=== PATIENT | male | born 1960 | race Caucasian/White ===

== ENCOUNTER 2021-03-03 11:20 | Outpatient (CLI) | payer BC, SELFPAY ==
--- NOTE | 2021-03-03 11:23 | ECG_ITS ---
Measurements Intervals Vincent Rate: 76 P: 49 IL: 173 QRS: 15 QRSD: 99 T: 41 QT: 359 QTc: 405 Interpretive Statements SINUS RHYTHM DELAYED PRECORDIAL R/S TRANSITION NONSPECIFIC T-WAVE ABNORMALITY- INFERIOR LEADS BORDERLINE ECG Electronically Signed On 03-03-2021 11:43:47 CDT by Washington Dowell D.O.
[2021-03-03 13:44] LABS: Anion Gap 7 mmol/L (8-16); Blood Urea Nitrogen 12 mg/dL (9-20); Calcium 9.5 mg/dL (8.4-10.2); Carbon Dioxide 27 mmol/L (22-30); Chloride 107 mmol/L (98-107); Estimated Glomerular Filt Rate > 60; Glucose 129 mg/dL (75-110); Potassium 3.6 mmol/L (3.4-5.0); Sodium 141 mmol/L (137-145)
== END 2021-03-03 11:21 | disposition home or self-care (01) ==
LOC: ANHSURGERY 11:23
PROVIDERS: PCP Internal Medicine; Visit Provider Urology
DX: Z01.818 Encounter for other preprocedural examination (principal); I10 Essential (primary) hypertension
CPT/HCPCS: 36415; 80048; 93005

== ENCOUNTER 2021-03-05 00:51 | Day surgery (SDC) | payer BC, SELFPAY ==
[2021-03-02 08:00] VITALS: BMI 25.9
[2021-03-05] VITALS (7 sets, daily range): BP systolic 116–152; BP diastolic 81–98; PULSE 56–76; RESP 10–18; TEMP 36.7; O2SAT 96–100
--- NOTE | ~2021-03-05 | XR_ITS ---
EXAMINATION: XR retrograde pyelogram BI DATE: 03/05/2021 11:12 INDICATION: Recurrent bladder cancer. TECHNIQUE: 114 intraoperative fluoroscopic views of the abdomen and pelvis were obtained. I was not p resent. Fluoroscopy exposure time was 21 seconds. COMPARISON: None. FINDINGS: The bilateral retrograde pyelograms are normal. There is a left hip arthroplasty. IMPRESSION: 1. Normal bilateral retrograde pyelograms. Reviewed, dictated and finalized at location A.
--- NOTE | 2021-03-05 06:40 | WPDHPUPDATE1 ---
History and Physical Update Update Date/Time: 03/05/21 06:40 History and Physical has been reviewed, including an updated exam of the patient. There are NO changes in the patient's condition. Risks, benefits, and alternatives have been discussed and questions answered. Patient agrees to proceed with procedure.
--- NOTE | 2021-03-05 10:25 | WPDANESEPPF ---
Anes - Initial Pre Proc Eval Procedure: Operation Date: 03/05/21 12:00 Proposed Procedures p Trans Urethral Resection Bladder Tumor, - Karl Hernandez MD s Cystoscopy, Bilteral Retrograde Pyelogram, - Karl Hernandez MD Date/Time: 03/05/21 10:25 Surgeon: Karl Hernandez MD Pre Op Diagnosis: recurrent bladder cancer Patient Data Age: 60 Gender: M Height: 1.78 m Weight: 82 kg Allergies Allergy/AdvReac Type Severity Reaction Status Date / Time No Known Allergies Allergy Unverified 03/05/21 10:23 Home Medications Medication Instructions Recorded Confirmed Type aspirin 81 mg tablet,delayed 81 mg PO DAILY 08/01/19 03/05/21 History release simvastatin 20 mg tablet 20 mg PO DAILY #90 tablet 05/19/20 03/05/21 Rx sildenafil 100 mg tablet See Rx Instructions .ROUTE 12/17/20 03/05/21 Rx .COMPLEX #60 tablet hydrochlorothiazide 25 mg PO DAILY 03/02/21 03/05/21 History Patient hx anesthesia problems: none Family hx anesthesia problems: none PMFSH Past Medical History Medical History HTN (hypertension) Hyperlipidemia Smoker Surgical History Surgical History (Updated 03/05/21 @ 10:29 by Nilton Deluca MD) Hx of cystoscopy S/P ACL reconstruction Family History Family History Father Patient's father is Malignant neoplasm of prostate Social History Social History Smoking packs per day: 0.5 Smoking cigarettes per day: 10.0 Years smoked: 40 Smoking pack-years: 20.00 Smoking status: Current every day smoker Second hand tobacco smoke exposure: No Alcohol intake: current Substance use: never Substance use type: does not use Living arrangements: with family Gender identity (if verbalized by the patient): Male Sexual Orientation (if Verbalized by the Patient): Straight or Heterosexual Spiritual care concerns: No Anes - Eval Final PreProcedure Day of Procedure 03/05/21 10:25 Patient weight: overweight Heart: regular rate and rhythm Lungs: clear to auscultation Airway: Mallampati scale class II Neurological: alert and oriented Last oral intake: >/= 8 hours ASA classification: III Emergent: no Anesthetic plan: proceed Anesthesia type and monitoring: general LMA and standard monitoring Informed Consent: The patient's anesthetic plan and its attendant risks and benefits were discussed with the patient/family/POA. Questions were solicited and answers provided to the satisfaction of the patient/family/POA.
[2021-03-05] MEDS: LACTATED RINGERS 1,000 ML 30 ML IV CONT (10:32)
[2021-03-05] MEDS: ceFAZolin 2 GM/D5W 50 ML 2 GM/50 ML BAG IVPB (10:49)
[2021-03-05] MEDS: LIDOCAINE HCL 2% GEL UROJET 10 ML PKG MUCOUS MEM (11:06)
--- NOTE | 2021-03-05 11:17 | P.OP_ITS ---
Procedure Note - Detailed Date of Procedure 03/05/21 Pre-op Diagnosis recurrent bladder cancer Post-op Diagnosis same Procedure Performed cystoscopy, bilateral retrograde pyelography, TURBT (small, 1.5cm) Surgeon Karl Hernandez MD Property Maintenance Technician None Anesthesia general Indications recurrent bladder tumor Findings 0.5 cm papillary bladder tumor right posterior lateral bladder wall Description of Procedure patient brought to the op suite was prepped draped in routine sterile fashion while in dorsal lithotomy position after the uneventful induction of a general LMA anesthetic. Cystoscopy is undertaken with a 21 F rigid cystoscope. There is no urethral stricture and he has only moderate hyperplasia of the prostate with a small median lobe. Bladder mucosa shows is 1 papillary 1.5 cm neoplasm in the right posterior lateral bladder wall. Remainder of the bladder is endoscopically normal without any other areas of hyperemia or suspicious neoplastic changes. Eight F bulb tip catheter was used to obtain bilateral retrograde pyelograms which showed normal upper urinary tracts without obstruction or filling defects. then replaced the cystoscope with a resectoscope and resected the small area mentioned above. The base and periphery were cauterized. Resectoscope was removed and an 18 F urethral catheter was placed to drainage. Implants None Drains Yes Packing No Pathology yes Complications No immediate complications Condition stable Disposition PACU
--- NOTE | 2021-03-05 11:41 | SUR.PHASEI ---
Simple mask removed at 1140.
== END 2021-03-05 13:27 | disposition home or self-care (01) ==
PROVIDERS: PCP Internal Medicine; Visit Provider Urology
PROC: 0TBB8ZZ Excision of Bladder, Via Natural or Artificial Opening Endoscopic (ICD-10-PCS; CPT 52234; principal; 2021-03-05 12:00)
PROC: (CPT 52352; 2021-03-05 12:00)
DX: C67.2 Malignant neoplasm of lateral wall of bladder (principal); I10 Essential (primary) hypertension; E78.5 Hyperlipidemia, unspecified; Z79.82 Long term (current) use of aspirin; F17.210 Nicotine dependence, cigarettes, uncomplicated
CPT/HCPCS: 52234; 74420; 88305; A9270; C1758; C1769; J0690; J3010; J7120; Q9966

== ENCOUNTER 2022-03-12 09:59 | Emergency (ER) | payer BC, SELFPAY ==
--- NOTE | ~2022-03-12 | XR_ITS ---
This report was recreated 03/26/2022. Original report was signed by Travis Avendaño M.D. on 03/12/2022 11:00 CDT. EXAMINATION: XR ankle LT min 3V DATE: 03/12/2022 10:47 INDICATION: Left ankle pain TECHNIQUE: Anteroposterior, lateral, mortise, and additional oblique view of the ankle were obtained. COMPARISON: None. FINDINGS: There is lateral soft tissue swelling of ankle. Bone alignment is normal. No fracture or os teochondral lesion identified. A plantar calcaneal enthesophyte is noted. IMPRESSION: 1. Lateral soft tissue swelling of ankle without underlying osseous abnormality identified. Reviewed, dictated and finalized at location B.
--- NOTE | ~2022-03-12 | XR_ITS ---
This report was recreated 03/26/2022. Original report was signed by Travis Avendaño M.D. on 03/12/2022 11:00 CDT. EXAMINATION: XR ankle LT min 3V DATE: 03/12/2022 10:47 INDICATION: Left ankle pain TECHNIQUE: Anteroposterior, lateral, mortise, and additional oblique view of the ankle were obtained. COMPARISON: None. FINDINGS: There is lateral soft tissue swelling of ankle. Bone alignment is normal. No fracture or osteochondral lesion identified. A plantar calcaneal enthesophyte is noted. IMPRESSION: 1. Lateral soft tissue swelling of ankle without underlying osseous abnormality identified. Reviewed, dictated and finalized at location B. Dictated By: Travis Avendaño MD 03/12/22 1059 Signed By: <Electronically signed by Travis Avendaño MD in OV> 03/12/22 1100 [facility]
--- NOTE | 2022-03-12 10:03 | ED.LOWEXIN ---
HPI - Extremity Injury (Lower) General Chief Complaint: Extremity Injury, Lower Stated Complaint: left ankle pain Time Seen by Provider: 03/12/22 10:10 Source: patient, RN notes reviewed and old records reviewed Mode of arrival: ambulatory Limitations: no limitations History of Present Illness HPI Narrative: 61-year-old male presents to the [facility] with complaints of left ankle pain and swelling for the last couple days. patient reports he made and appointment with his primary care provider on March 25 for this issue but reports that the pain was bad last night it woke him up. Has taken Advil. On occasion pain in the ankle radiates to his heel and calf. Warmth and swelling noted. Denies any specific injury, patient states that he does run a lot. Has been taking advil Other symptoms: none Related Data Home Medications Medication Instructions Recorded Confirmed hydrochlorothiazide 25 mg tablet 25 mg PO DAILY 03/02/21 03/12/22 Allergies Allergy/AdvReac Type Severity Reaction Status Date / Time No Known Allergies Allergy Unverified 03/12/22 10:19 Review of Systems Review of Systems: All systems reviewed & are unremarkable except as noted in HPI and below Constitutional: Constitutional: Reports no additional constitutional complaints, Denies chills and Denies fever(s) Eyes: Eyes: Reports no additional eye complaints ENT: Reports system reviewed and no additional complaints, except as documented Cardiovascular: Cardiovascular: Reports no additional cardiovascular complaints Respiratory: Respiratory: Reports no additional respiratory complaints Gastrointestinal: Gastrointestinal: Reports no additional gastrointestinal complaints Musculoskeletal: Musculoskeletal: Reports as per HPI, Reports arthralgias (left ankle) and Reports joint swelling (left ankle) Integumentary/Breasts: Skin/Breast: Reports system reviewed and no additional complaints, except as docu Neurologic: Reports system reviewed and no additional complaints, except as documented Psychiatric: Psychiatric: Reports no additional psychiatric complaints Allergic/Immunologic: Allergic/Immunologic: Reports no additional allergic/immunologic complaints PMFSH Past Medical History Medical History HTN (hypertension) Hyperlipidemia Smoker Surgical History Surgical History Hx of cystoscopy S/P ACL reconstruction Family History Family History Father Patient's father is Malignant neoplasm of prostate Social History Social History Smoking packs per day: 0.5 Smoking cigarettes per day: 10.0 Years smoked: 40 Smoking pack-years: 20.00 Smoking status: Current every day smoker Second hand tobacco smoke exposure: No Alcohol intake: current Substance use: never Substance use type: does not use Gender identity (if verbalized by the patient): Male Sexual Orientation (if Verbalized by the Patient): Straight or Heterosexual Spiritual care concerns: No Comments At the time of my signature, I reviewed and agree with the nursing past medical, surgical, social, and family history. There is no relevant family history pertinent to the patient complaint. Exam Const: General: healthy appearing, no acute distress and alert Nutritional Appearance: well nourished Orientation/consciousness: patient oriented x3 Limitations: no limitations HENMT: Head: normal to inspection Ears: external ears normal Eyes: General: appearance normal, both eyes and all related structures Pupils: Equal, round and reactive pupils present Neck: Neck: normal visual inspection, no lymphadenopathy and no meningeal signs Chest: Chest palpation & inspection: normal inspection of the chest Resp: Effort & Inspection: normal respiratory effort and no use of accessory muscles Auscultation:
[2022-03-12 10:13] VITALS: BP 146/87; PULSE 66; RESP 16; TEMP 36.1; O2SAT 97
== END 2022-03-12 11:17 | disposition home or self-care (01) ==
PROVIDERS: Emergency Provider Nurse Practitioner; PCP Family Medicine
DX: M25.472 Effusion, left ankle (principal); F17.210 Nicotine dependence, cigarettes, uncomplicated; I10 Essential (primary) hypertension; E78.5 Hyperlipidemia, unspecified
CPT/HCPCS: 73610; 99213; G0463

== ENCOUNTER 2022-03-26 08:13 | Outpatient (CLI) | payer BC, SELFPAY ==
[2022-03-26 19:31] LABS: Erythrocyte Sedimentation Rate 10 mm/hr (0-20)
[2022-03-26 20:43] LABS: Rheumatoid Factor < 8.6 IU/ML (<12)
[2022-03-26 20:45] LABS: Alanine Aminotransferase 20 U/L (6-50); Alkaline Phosphatase 59 U/L (38-126); Anion Gap 5 mmol/L (8-16); Aspartate Amino Transferase 32 U/L (17-59); Bilirubin,Total 0.3 mg/dL (0.2-1.3); Blood Urea Nitrogen 18 mg/dL (9-20); Calcium 9.3 mg/dL (8.4-10.2); Carbon Dioxide 28 mmol/L (22-30); Chloride 103 mmol/L (98-107); Cholesterol 182 mg/dL (0-200); Estimated Glomerular Filt Rate > 60; Glucose 112 mg/dL (65-110); HDL Direct 67 mg/dL; Sodium 136 mmol/L (137-145); Triglycerides 48 mg/dL (<150); Uric Acid 8.2 mg/dL (3.5-8.5)
[2022-03-26 20:56] LABS: LDL Cholesterol Direct 77 mg/dL
[2022-03-26 21:10] LABS: Prostate Specific Antigen 1.3 ng/mL (< OR = 4.0)
== END 2022-03-26 08:14 | disposition home or self-care (01) ==
LOC: ANHGOSHLAB 08:14
PROVIDERS: PCP Family Medicine; Visit Provider Family Medicine
DX: Z12.5 Encounter for screening for malignant neoplasm of prostate (principal); M25.572 Pain in left ankle and joints of left foot; E78.5 Hyperlipidemia, unspecified; Z13.228 Encounter for screening for other metabolic disorders; M25.50 Pain in unspecified joint
CPT/HCPCS: 36415; 80053; 80061; 84153; 84550; 85652; 86038; 86430; G0103

== ENCOUNTER 2023-04-08 11:35 | Outpatient (CLI) | payer BC, SELFPAY ==
[2023-04-08 14:45] LABS: Alanine Aminotransferase 28 U/L (6-50); Albumin Level 4.1 g/dL (3.5-5.1); Alkaline Phosphatase 54 U/L (38-126); Anion Gap 5 mmol/L (8-16); Aspartate Amino Transferase 57 U/L (17-59); Bilirubin,Total 0.6 mg/dL (0.2-1.3); Blood Urea Nitrogen 18 mg/dL (9-20); Calcium 9.6 mg/dL (8.4-10.2); Carbon Dioxide 30 mmol/L (22-30); Chloride 101 mmol/L (98-107); Cholesterol 190 mg/dL (0-200); Estimated Glomerular Filt Rate > 60; Glucose 108 mg/dL (65-110); HDL Direct 74 mg/dL; Potassium 3.9 mmol/L (3.4-5.0); Sodium 136 mmol/L (137-145); Triglycerides 47 mg/dL (<150)
[2023-04-08 15:00] LABS: LDL Cholesterol Direct 84 mg/dL
[2023-04-08 15:12] LABS: Prostate Specific Antigen 1.4 ng/mL (< OR = 4.0)
[2023-04-08 15:53] LABS: Hemoglobin A1C 5.2 % (<5.7)
== END 2023-04-08 11:36 | disposition home or self-care (01) ==
LOC: ANHGOSHLAB 11:36
PROVIDERS: PCP Family Medicine; Visit Provider Family Medicine
DX: E11.9 Type 2 diabetes mellitus without complications (principal); Z13.220 Encounter for screening for lipoid disorders; Z12.5 Encounter for screening for malignant neoplasm of prostate; Z13.228 Encounter for screening for other metabolic disorders; I10 Essential (primary) hypertension; E78.5 Hyperlipidemia, unspecified; C67.8 Malignant neoplasm of overlapping sites of bladder
CPT/HCPCS: 36415; 80053; 80061; 83036; 84153; G0103

== ENCOUNTER → 2023-04-08 11:42 | Outpatient (CLI) | payer BC, SELFPAY ==
--- NOTE | ~2023-04-08 | XR_ITS ---
AP and lateral views of the right hip Clinical history: Pain Findings: No acute fracture or dislocation is seen. Osseous alignment is anatomic. There is minimal d egenerative change of the right hip joint. Soft tissues are unremarkable. Impression: Minimal degenerative change of the right hip joint. No fracture or dislocation. Reviewed, dictated and finalized at [facility]. Impression: Minimal degenerative change of the right hip joint. No fracture or dislocation.
== END ==
PROVIDERS: PCP Family Medicine; Visit Provider Family Medicine
DX: M25.551 Pain in right hip (principal)
CPT/HCPCS: 73502

== ENCOUNTER 2024-05-09 08:01 | Outpatient (CLI) | payer OTHER, SELFPAY ==
[2024-05-09 20:32] LABS: Alanine Aminotransferase 24 U/L (6-50); Albumin Level 3.8 g/dL (3.5-5.1); Alkaline Phosphatase 52 U/L (38-126); Anion Gap 8 mmol/L (4-12); Aspartate Amino Transferase 35 U/L (17-59); Bilirubin,Total 0.4 mg/dL (0.2-1.3); Blood Urea Nitrogen 20 mg/dL (9-20); Calcium 8.9 mg/dL (8.4-10.2); Carbon Dioxide 31 mmol/L (22-30); Chloride 95 mmol/L (98-107); Cholesterol 166 mg/dL (0-200); Estimated Glomerular Filt Rate > 60; Glucose 101 mg/dL (65-110); HDL Direct 62 mg/dL; Potassium 3.7 mmol/L (3.4-5.0); Sodium 134 mmol/L (137-145); Triglycerides 66 mg/dL (<150)
[2024-05-09 20:44] LABS: LDL Cholesterol Direct 78 mg/dL
[2024-05-09 21:01] LABS: Prostate Specific Antigen 1.4 ng/mL (< OR = 4.0)
== END 2024-05-09 08:02 | disposition home or self-care (01) ==
LOC: ANHGOSHLAB 08:02
PROVIDERS: PCP Family Medicine; Visit Provider Family Medicine
DX: Z12.5 Encounter for screening for malignant neoplasm of prostate (principal); E78.5 Hyperlipidemia, unspecified; Z13.228 Encounter for screening for other metabolic disorders
CPT/HCPCS: 36415; 80053; 80061; 84153; G0103

== ENCOUNTER 2024-05-15 13:45 | Outpatient (CLI) | payer OTHER, SELFPAY ==
--- NOTE | ~2024-05-15 | CT_ITS ---
CT Scan of the Chest without Contrast: Clinical Indication: Lung cancer screening, nicotine dependence Technique: Contiguous sections were acquired throughout the chest without intravenous contrast. Dose reduction technique was used on this scan by utilizing automated exposure control and iterative recon struction technique. The dose-length product (DLP) was 145.25 mGy-cm. Findings: There is no evidence of any significant mediastinal, hilar or axillary lymphadenopathy. The mediastin al soft tissues appear normal. There is no evidence of pleural or pericardial effusion. Calcified left upper lobe granuloma present. No other pulmonary nodule evident. Images through the upper abdomen reveal no abnormalities. Impression: Lung RADS 2: Benign appearance. 12 month follow-up screening CT advised. Reviewed, dictated and finalized at [facility]. Impression: Lung RADS 2: Benign appearance. 12 month follow-up screening CT advised.
== END 2024-05-15 13:46 | disposition home or self-care (01) ==
LOC: GOSHIMG 13:46
PROVIDERS: PCP Family Medicine; Visit Provider Family Medicine
DX: Z12.2 Encounter for screening for malignant neoplasm of respiratory organs (principal); Z87.891 Personal history of nicotine dependence
CPT/HCPCS: 71271

== ENCOUNTER 2024-11-16 08:15 | Outpatient (CLI) | payer MEDICARE, OTHER, SELFPAY ==
[2024-11-16 18:44] LABS: Hematocrit 42.8 % (42.0-52.0); Hemoglobin 14.2 g/dL (14.0-18.0); Mean Corpuscular HGB Conc 33.2 g/dl (32-36); Mean Corpuscular Hemoglobin 32.1 pg (26-34); Mean Corpuscular Volume 96.8 fl (80-100); Mean Platelet Volume 10.7 fl (7.4-10.4); Platelet Count Result 235 k/mm3 (150-375); Red Blood Count 4.42 M/mm3 (4.6-6.20); Red Cell Distribution Width 12.4 % (11.5-14.5)
[2024-11-16 18:50] LABS: Alanine Aminotransferase 25 U/L (6-50); Albumin Level 3.9 g/dL (3.5-5.1); Alkaline Phosphatase 53 U/L (38-126); Anion Gap 7 mmol/L (4-12); Aspartate Amino Transferase 59 U/L (17-59); Bilirubin,Total 0.4 mg/dL (0.2-1.3); Blood Urea Nitrogen 17 mg/dL (9-20); Calcium 8.9 mg/dL (8.4-10.2); Carbon Dioxide 29 mmol/L (22-30); Chloride 101 mmol/L (98-107); Cholesterol 168 mg/dL (0-200); Estimated Glomerular Filt Rate > 60; Glucose 111 mg/dL (65-110); HDL Direct 71 mg/dL; Potassium 4.1 mmol/L (3.4-5.0); Sodium 137 mmol/L (137-145); Triglycerides 52 mg/dL (<150)
[2024-11-16 19:01] LABS: LDL Cholesterol Direct 73 mg/dL
[2024-11-16 19:16] LABS: Thyroid Stimulating Hormone 0.553 uIU/mL (0.465-4.680)
== END 2024-11-16 08:16 | disposition home or self-care (01) ==
LOC: ANHGOSHLAB 08:19
PROVIDERS: PCP Family Medicine; Visit Provider Family Medicine
DX: E78.5 Hyperlipidemia, unspecified (principal); I10 Essential (primary) hypertension; Z79.899 Other long term (current) drug therapy
CPT/HCPCS: 36415; 80053; 80061; 84443; 85027

== ENCOUNTER 2025-03-07 11:41 | Outpatient (CLI) | payer OTHER, MEDICARE, SELFPAY ==
--- NOTE | ~2025-03-07 | XR_ITS ---
XR sacroiliac joints min 3V Ordering provider: Gardenia Sol DO History: . M54.50 - Low back pain, unspecified . Comparison: None. FINDINGS: BONES: No acute fracture or dislocation. Degenerative disc disease at the level of L5-S1. JOINTS: The bilateral sacroiliac joint spaces appear well maintained. No bony fusion of the sacroilia c joints or bony erosions. Left hip arthroplasty. SOFT TISSUES: Unremarkable. IMPRESSION: NO ACUTE OSSEOUS ABNORMALITY. NORMAL SACROILIAC JOINTS. Reviewed, dictated and finalized at location A.
--- NOTE | ~2025-03-07 | XR_ITS ---
3 VIEWS LUMBAR SPINE Ordering provider: Gardenia Sol DO History: . M54.50 - Low back pain, unspecified . Comparison: None. FINDINGS: VERTEBRAL BODIES:Mild dextroscoliosis. No visible fracture or subluxation. Degenerative changes of t he spine. DISK SPACES: Narrowing of the disc L1-L2 and L5-S1. SOFT TISSUES: Atherosclerotic changes of the aorta. IMPRESSION: No acute osseous abnormality lumbar spine. Multilevel degenerative disc disease. Reviewed, dictated and finalized at location A.
== END 2025-03-07 11:42 | disposition home or self-care (01) ==
LOC: GOSHIMG 11:42
PROVIDERS: PCP Family Medicine; Visit Provider Family Medicine
DX: M51.369 Other intervertebral disc degeneration, lumbar region without mention of lumbar back pain or lower extremity pain (principal); M51.379 Other intervertebral disc degeneration, lumbosacral region without mention of lumbar back pain or lower extremity pain; M53.3 Sacrococcygeal disorders, not elsewhere classified
CPT/HCPCS: 72110; 72202

== ENCOUNTER 2025-04-30 15:30 | Outpatient (RCR) | payer OTHER, MEDICARE, SELFPAY ==
--- NOTE | 2025-04-09 16:26 | OPREHPOC ---
Outpatient Therapy Plan of Care This is a Multidisciplinary Plan of Care that may contain components documented by all disciplines (PT, OT, and ST.) PT Problem 1 PT Problem #1 Knowledge Deficit PT Goal 1 Goal / Goal Update 1. Pt display independence of HEP for home management of symptoms 2. Pt will have a decreased pain report to less than 2/10 for 2 consecutive weeks. Target Visit 4 PT Problem 2 PT Problem #2 Impaired Flexibility PT Goal 1 Goal / Goal Update 1. Pt to display improvements in hamstring and piriformis muscle length to reduce muscular strain on lumbar spine Target Visit 6 PT Problem 3 PT Problem #3 Impaired Functional Mobility PT Goal 1 Goal / Goal Update 1. Pt will report no change in symptoms with prolonged sitting of > 30 minutes after exercise. 2. Pt will report a return to full walking and cardio routine with no limitations Target Visit 6
--- NOTE | 2025-04-09 16:28 | PTOPEVAL1 ---
Assessment and note entered by Oj Hebert PT Evaluation Information Assessment Status Evaluation Diagnosis Low back pain ICD-10 Condition Codes (PT) Pain in low back M54.50 Onset intermittent Subjective Information Pt states he has been having back pain with prolonged sitting or laying down. Pt notes he is very active and walks 4-10 miles a day, pt states the pain in worse when he sits down after he is workouts, but resolves when he is moving again. Pt denies pain awaking him at night but does note pain and stiffness first thing in the morning. Pt states he has had a few instances of LLE pain and tingling but nothing to often. Pt reports a history of lower back pain only when he had bladder cancer in 2016 and 2021, Pt states he would like like to get further imaging / testing to rule out an possibility of cancer. Reported Pain Level Pain Score 1: Self Report Assessment PT Clinical Summary Patient presents to physical therapy with a primary issue of lower back pain that is worse after prolonged sitting after exercising. Patient demonstrates hip and core weakness, pain, decreased lumbar mobility and decreased LE flexibility that causes further compensation at the lumbar spine. Patient will benefit from skilled physical therapy to address the above listed deficits and return to prior level of function. Home exercise program instructed and written handout provided, exercises tolerated well with no adverse effects to note post-session. Patient was educated on importance of adherence to home exercise program. Patient was also educated on anatomy, prognosis, and plan of care. Pt was advised to seek further medical attention if symptoms evolve due to his history of bladder cancer. Plan of Care Interventions Hot Pack/Cold Pack,Manual Therapy,Mechanical Traction,Neuro Re-education,Therapeutic Activities ,Therapeutic Exercise,Other PT Services Indicated Yes Treatment Frequency and 1-2x week 6 visits Duration These treatments will address the objective and functional deficits as defined above. The patient will be advanced safely and appropriately in order for the patient to progress towards his/her prior level of function. Additional exercises will be introduced and as well as a comprehensive home exercise program upon discharge, if needed, ?to ensure carryover of functional gains achieved in the clinic. This treatment plan has been reviewed and agreement upon by the patient.
--- NOTE | 2025-04-30 16:04 | PTOPDC ---
Assessment and note entered by Oj Hebert PT Evaluation Information Assessment Status Evaluation Diagnosis Low back pain ICD-10 Condition Codes (PT) Pain in low back M54.50 Onset intermittent Subjective Information Pt states he continues to have pain and stiffness in the morning and after his walks. Pt states he would like to meet with his primary care and request further imagining. Pt notes therapy has helped some but he could keep up with the stretches on his own. Reported Pain Level Pain Score 0: Self Report Assessment PT Clinical Summary Patient's lower back pain is still present in the mornings and after prolonged sitting despite improvement in mobility, core strength. Patient is pleased with therapy progress but would like to seek further diagnostic imaging since pain is still present. Patient to contact physical therapist or primary care provider if questions or concerns arise. Plan of Care PT Services Indicated No
== END 2025-05-01 11:27 | disposition home or self-care (01) ==
LOC: ANHGOSHPT 15:30
PROVIDERS: PCP Family Medicine; Visit Provider Nurse Practitioner
DX: M54.50 Low back pain, unspecified (principal)
CPT/HCPCS: 97110; 97112; 97140; 97161

== ENCOUNTER 2025-06-03 08:59 | Outpatient (CLI) | payer OTHER, MEDICARE, SELFPAY ==
[2025-06-03 12:59] LABS: Hematocrit 41.7 % (42.0-52.0); Hemoglobin 14.0 g/dL (14.0-18.0); Mean Corpuscular HGB Conc 33.6 g/dl (32-36); Mean Corpuscular Hemoglobin 32.0 pg (26-34); Mean Corpuscular Volume 95.4 fl (80-100); Platelet Count Result 250 k/mm3 (150-375); Red Blood Count 4.37 M/mm3 (4.6-6.20); White Blood Count 6.6 K/mm3 (4.5-10.0)
[2025-06-03 13:08] LABS: Alanine Aminotransferase 20 U/L (6-50); Albumin Level 4.0 g/dL (3.5-5.1); Alkaline Phosphatase 54 U/L (38-126); Anion Gap 5 mmol/L (4-12); Aspartate Amino Transferase 39 U/L (17-59); Bilirubin,Total 0.4 mg/dL (0.2-1.3); Blood Urea Nitrogen 25 mg/dL (9-20); Calcium 9.1 mg/dL (8.4-10.2); Carbon Dioxide 30 mmol/L (22-30); Chloride 99 mmol/L (98-107); Cholesterol 197 mg/dL (0-200); Estimated Glomerular Filt Rate > 60; Glucose 109 mg/dL (65-110); HDL Direct 74 mg/dL; Potassium 4.1 mmol/L (3.4-5.0); Sodium 134 mmol/L (137-145); Total Protein 7.1 g/dL (6.3-8.2); Triglycerides 60 mg/dL (<150)
[2025-06-03 13:44] LABS: Hemoglobin A1C 5.1 % (<5.7)
[2025-06-03 13:45] LABS: Prostate Specific Antigen 1.5 ng/mL (< OR = 4.0); Thyroid Stimulating Hormone 0.520 uIU/mL (0.465-4.680)
== END 2025-06-03 09:00 | disposition home or self-care (01) ==
LOC: ANHGOSHLAB 09:00
PROVIDERS: PCP Family Medicine; Visit Provider Family Medicine
DX: E78.5 Hyperlipidemia, unspecified (principal); I10 Essential (primary) hypertension; Z12.5 Encounter for screening for malignant neoplasm of prostate; Z79.899 Other long term (current) drug therapy; R73.09 Other abnormal glucose
CPT/HCPCS: 36415; 80053; 80061; 83036; 84153; 84443; 85027; G0103

== ENCOUNTER 2025-06-11 13:50 | Outpatient (CLI) | payer MEDICARE, OTHER, SELFPAY ==
--- NOTE | ~2025-06-11 | CT_ITS ---
EXAMINATION:CT lung screening DATE: 06/11/2025 14:11 INDICATION: Personal history of nicotine dependence. TECHNIQUE: Computed tomography (CT) of the chest was performed without intravenous contrast. Automated exposure control and iterative reconstruction technique were employed. The dose-length product (DLP) was 156.79 mGy-cm. COMPARISON: Chest CT 05/15/2024 FINDINGS: There is mild atelectasis bilaterally. There are a few scattered nodules measuring up to 3 mm. Calcified bilateral lung nodules and calcified left hilar lymph nodes are consistent with old granulomatous disease. No pleural effusion. There is ectasia of ascending aorta measuring 4.5 cm. The heart size is normal. There are coronary artery calcifications. No pericardial effusion. There is a small sliding hiatal hernia. There is severe cervical spondylosis and mild thoracic spondylosis. There is mild chronic anterior wedging of multiple vertebral bodies. IMPRESSION: 1. Lung-RADS category 2: Benign appearance or behavior. Continue annual screening with noncontrast low-dose chest CT in 12 months. Reviewed, dictated and finalized at location E. IMPRESSION: 1. Lung-RADS category 2: Benign appearance or behavior. Continue annual screeni ng with noncontrast low-dose chest CT in 12 months.
== END 2025-06-11 13:51 | disposition home or self-care (01) ==
LOC: MICIMG 13:52
PROVIDERS: PCP Family Medicine; Visit Provider Family Medicine
DX: Z12.2 Encounter for screening for malignant neoplasm of respiratory organs (principal); Z87.891 Personal history of nicotine dependence
CPT/HCPCS: 71271